=== PATIENT | male | born 1980 | race Caucasian/White ===

== ENCOUNTER 2022-03-16 09:30 | Outpatient (CLI) | payer OTHER | END 2022-03-16 09:31 | disposition home or self-care (01) | LOC: MADCT 09:30 | PROVIDERS: ATTEND Nurse Practitioner | DX: R10.9 Unspecified abdominal pain (principal); K76.9 Liver disease, unspecified; K57.30 Diverticulosis of large intestine without perforation or abscess without bleeding | CPT/HCPCS: 74176 ==

== ENCOUNTER 2023-05-08 09:07 | Outpatient (CLI) | payer OTHER, SELFPAY | END 2023-05-08 09:08 | disposition home or self-care (01) | LOC: MADCT 09:07 | PROVIDERS: ATTEND Family Medicine | DX: S30.0XXA Contusion of lower back and pelvis, initial encounter (principal); R19.01 Right upper quadrant abdominal swelling, mass and lump | CPT/HCPCS: 74176 ==